=== PATIENT | male | born 1940 | race Caucasian/White ===

== ENCOUNTER 2017-02-26 12:02 | Inpatient (IN) | payer OTHER ==
[2017-02-26] MEDS ORDERED: MAGNESIUM HYDROX 2400MG/30ML ORAL SUSPENSION 30 ML CUP PO PRN (16:25)
[2017-02-26] MEDS ORDERED: hydrOXYzine PAMOATE 50 MG CAPSULE (FP) PO PRN (16:25)
[2017-02-26] MEDS ORDERED: P-EPHED 60MG/TRIPROLIDI 2.5MG TABLET PO PRN (16:25)
[2017-02-26] MEDS ORDERED: IBUPROFEN 400 MG TABLET (FP) PO PRN (16:25)
[2017-02-26] MEDS ORDERED: MAG HYDROX/AL HYDROX/SIMETH 30 ML UNIT-DOSE CUP PO PRN (16:25)
[2017-02-26] MEDS ORDERED: chlordiazePOXIDE HCL 25 MG CAPSULE PO PRN (16:25)
[2017-02-26] MEDS ORDERED: MENTHOL/PHENOL 1 EACH UD MM PRN (16:25)
[2017-02-26] MEDS ORDERED: LOPERAMIDE HCL 2 MG CAPSULE PO PRN (16:25)
[2017-02-26] MEDS ORDERED: MAGNESIUM CITRATE 300 ML BOTTLE PO PRN (16:25)
[2017-02-26] MEDS ORDERED: guaiFENesin/D-METHORPHAN HB 10 ML UNIT-DOSE CUPS PO PRN (16:25)
--- NOTE | 2017-02-26 16:41 | HP ---
CIWA Score - CIWA Score Nausea/Vomitin-No Nausea/No Vomiting Muscle Tremors: 4-Moderate,w/Arms Extend Anxiety: 4-Mod. Anxious/Guarded Agitation: 4-Moderately Restless Paroxysmal Sweats: 3 Orientation: 0-Oriented Tacttile Disturbances: 0-None Auditory Disturbances: 0-None Visual Disturbances: 0-None Headache: 1-Very Mild CIWA-Ar Total Score: 16 Admission ROS BHS - HPI Chief Complaint: I need to stop drinking. Allergies/Adverse Reactions: Allergies Allergy/AdvReac Type Severity Reaction Status Date / Time Penicillins Allergy Intermediate Nausea Verified 02/26/17 16:23 History of Present Illness: pt is a 76yr old male with a history of alcohol dependence seeking detox for treatment. pt has a hx of multiple myloma. pt born with one kidney (renal agenesis) psoriasis Exam Limitations: No Limitations - Ebola screening Have you traveled outside of the country in the last 21 days: No Have you had contact with anyone from an Ebola affected area: No Have you been sick,other than usual withdrawal symptoms: No Do you have a fever: No - Review of Systems Constitutional: Diaphoresis, Night Sweats, Changes in sleep (H/O multiple myoloma H/O renal agenisus) EENT: reports: No Symptoms Reported Respiratory: reports: No Symptoms reported Cardiac: reports: No Symptoms Reported GI: reports: Diarrhea, Poor Appetite, Poor Fluid Intake : reports: No Symptoms Reported Musculoskeletal: reports: Back Pain Integumentary: reports: Flushing, Sweating, Other (psoriosis on skin) Neuro: reports: Tingling, Tremors Endocrine: reports: Excessive Sweating, Flushing Hematology: reports: No Symptoms Reported Psychiatric: reports: Judgement Intact, Mood/Affect Appropiate, Orientated x3, Agitated, Anxious Other Systems: Reviewed and Negative Patient History - Patient Medical History Hx Anemia: No Hx Asthma: No Hx Chronic Obstructive Pulmonary Disease (COPD): No Hx Cancer: Yes (multiple myloma) Hx Cardiac Disorders: No Hx Congestive Heart Failure: No Hx Hypertension: No Hx Hypercholesterolemia: No Hx Pacemaker: No HX Cerebrovascular Accident: No Hx Seizures: No Hx Dementia: No Hx Diabetes: No Hx Gastrointestinal Disorders: No Hx Liver Disease: No Hx Genitourinary Disorders: No Hx Sexually Transmitted Disorders: No Hx Renal Disease (ESRD): No Hx Thyroid Disease: No Hx Human Immunodeficiency Virus (HIV): No (negative) Hx Hepatitis C: No (negtive) Hx Depression: Yes Hx Suicide Attempt: No Hx Bipolar Disorder: No Hx Schizophrenia: No Other Medical History: anxiety - Patient Surgical History Past Surgical History: No - PPD History Previous Implant?: Yes Documented Results: Negative w/o proof PPD to be Administered?: Yes - Reproductive History Patient is a Female of Child Bearing Age (11 -55 yrs old): No - Smoking Cessation Smoking history: Former smoker Have you smoked in the past 12 months: No Hx Chewing Tobacco Use: No Initiated information on smoking cessation: No - Substance & Tx. History Hx Alcohol Use: Yes Hx Substance Use: No Substance Use Type: Alcohol Hx Substance Use Treatment: Yes - Substances Abused Alcohol Route: Oral Frequency: Daily Amount used: 1 pint vodka Age of first use: 30 Date of Last Use: 02/25/17 Family Disease History - Family Disease History Family History: Denies Admission Physical Exam [facility] - Vital Signs Vital Signs: Vital Signs - 24 hr 02/26/17 13:11 Temperature 97 F L Pulse Rate 100 H Respiratory 20 Rate Blood Pressure 141/74 - Physical General Appearance: Yes: Appropriately Dressed, Thin, Tremorous, Irritable, Sweating, Anxious HEENTM: Yes: Normal Voice Respiratory: Yes: Lungs Clear, Normal Breath Sounds, No Respiratory Distress Neck: Yes: No masses,lesions,Nodules Breast: Yes: Within Normal Limits Cardiology: Yes: Regular Rhythm, Regular Rate, S1, S2 Abdominal: Yes: Normal Bowel Sounds, Non Tender, Soft Genitourinary: Yes: Within Normal Limits Back: Yes: Normal Inspection Musculoskeletal: Yes: full range of Motion Extremities: Yes: Normal Capillary Refill, Normal Inspection, Tremors Neurological: Yes: Fully Oriented, Alert, Normal Response Integumentary: Yes: Normal Color, Other (psorisis back area) Lymphatic: Yes: Within Normal Limits - Diagnostic (1) Alcohol dependence with uncomplicated withdrawal Current Visit: Yes Status: Chronic (2) H/O multiple myeloma Current Visit: No Status: Chronic Comment: pt gets weekly chemo injections every saturday. pt received his injection today. (3) Renal agenesis, unilateral Current Visit: No Status: Chronic Cleared for Admission [facility] - Detox or Rehab [facility] Level of Care: Medically Managed Detox Regimen/Protocol: Librium BHS Breath Alcohol Content Breath Alcohol Content: 0 Urine Drug Screen - Results Drug Screen Negative: Yes
[2017-02-26] MEDS ORDERED: chlordiazePOXIDE HCL 25 MG CAPSULE PO SCH (17:00)
[2017-02-26] MEDS ORDERED: chlordiazePOXIDE HCL 25 MG CAPSULE PO ONE (17:45)
[2017-02-26] MEDS ORDERED: FENOFIBRIC ACID 135 MG CAP PO SCH (18:00)
[2017-02-26] MEDS: THIAMINE HCL 100 MG TABLET (FP) PO SCH (22:26)
[2017-02-26] MEDS: chlordiazePOXIDE HCL 25 MG CAPSULE PO SCH (22:26)
[2017-02-26] MEDS: ATORVASTATIN CA 10 MG TABLET (FP) PO SCH (22:26)
[2017-02-26] MEDS: CALCITRIOL 0.25 MCG CAPSULE (FP) PO SCH (22:26)
[2017-02-27] MEDS: chlordiazePOXIDE HCL 25 MG CAPSULE PO SCH ×4 (06:08→23:01)
[2017-02-27] MEDS: CALCITRIOL 0.25 MCG CAPSULE (FP) PO SCH ×3 (06:08→23:02)
--- NOTE | 2017-02-27 07:38 | CONSULT ---
[facility] Psychiatric Consult - Data Date of interview: 02/27/17 Admission source: [facility] Identifying data: This is 76 years old male with no psychiatric hospitalization history intoxicated with: Alcohol Substance Abuse History: - Smoking Cessation. Smoking history: Former smoker. Have you smoked in the past 12 months: No. Hx Chewing Tobacco Use: No. Initiated information on smoking cessation: No. - Substance & Tx. History. Hx Alcohol Use: Yes. Hx Substance Use: No. Substance Use Type: Alcohol. Hx Substance Use Treatment: Yes. - Substances Abused. Alcohol. Route: Oral. Frequency: Daily. Amount used: 1 pint vodka. Age of first use: 30. Date of Last Use: 02/25/17 Medical History: History of Multiple Myeloma Cancer Psychiatric History: Patient report history of depression and anxiety, reports taking prior to admission: Zoloft 25mg poqd Physical/Sexual Abuse/Trauma History: Denies Additional Comment: Zoloft 25mg poqd Mental Status Exam - Mental Status Exam Alert and Oriented to: Time, Place, Person Cognitive Function: Fair Patient Appearance: Well Groomed Mood: Apprehensive Affect: Mood Congruent Patient Behavior: Cooperative Speech Pattern: Appropriate Voice Loudness: Normal Thought Process: Goal Oriented Thought Disorder: Being Controlled Hallucinations: Denies Suicidal Ideation: Denies Homicidal Ideation: Denies Insight/Judgement: Fair Sleep: Difficulty falling asleep Appetite: Fair Muscle strength/Tone: Normal Gait/Station: Normal Additional Comments: Zoloft 25mg poqd Psychiatric Findings - Problem List ([place] 1, 2,3) (1) Alcohol-induced anxiety disorder Current Visit: Yes Status: Acute (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
[2017-02-27 10:20] LABS: MCH 36.2 pg (25.7-33.7); MCHC 33.6 g/dl (32.0-35.9); MEAN CELL VOLUME 107.5 fl (80-96); MEAN PLT VOLUME 7.9 fl (7.5-11.1); PLATELET COUNT 75 K/MM3 (134-434); RDW 19.2 % (11.9-15.9); WHITE BLOOD COUNT 5.6 K/mm3 (4.0-10.0)
[2017-02-27 10:21] LABS: ALBUMIN 2.9 g/dl (3.4-5.0); ANION GAP 8 (8-16); CALCIUM 8.1 mg/dL (8.5-10.1); CO2 23 mmol/L (21-32); CREATININE 2.7 mg/dL (0.7-1.3); GLUCOSE,RANDOM 86 mg/dL (74-106); SGOT/AST 70 U/L (15-37); SGPT/ALT 73 U/L (12-78)
[2017-02-27 10:23] LABS: ALK PHOS 87 U/L (45-117); BILIRUBIN,TOTAL 0.5 mg/dL (0.2-1.0); TOT PROT 4.9 g/dl (6.4-8.2)
[2017-02-27] MEDS: PRENATAL VITAMINS W/ FOLIC ACID TABLET (FP) PO SCH (10:39)
[2017-02-27] MEDS: SERTRALINE HCL 25 MG TABLET (FP) PO SCH (10:39)
[2017-02-27] MEDS: FINASTERIDE 5 MG TABLET (FP) PO SCH (10:39)
[2017-02-27 10:47] LABS: PH,URINE 5.5 (5.0-8.0); URINE APPEARANCE CLEAR; URINE BILIRUBIN NEGATIVE (NEGATIVE); URINE COLOR LT. YELLOW; URINE GLUCOSE (UA) NEGATIVE (NEGATIVE); URINE KETONE NEGATIVE (NEGATIVE); URINE NITRITE NEGATIVE (NEGATIVE); URINE UROBILINOGEN 0.2 mg/dL (0.2-1.0)
[2017-02-27 10:53] LABS: URINE BLOOD TRACE (NEGATIVE); URINE PROTEIN 1+ (NEGATIVE)
--- NOTE | 2017-02-27 11:57 | PN ---
S CIWA - CIWA Score Nausea/Vomitin-No Nausea/No Vomiting Muscle Tremors: 4-Moderate,w/Arms Extend Anxiety: 3 Agitation: 3 Paroxysmal Sweats: 3 Orientation: 0-Oriented Tacttile Disturbances: 0-None Auditory Disturbances: 0-None Visual Disturbances: 0-None Headache: 0-None Present CIWA-Ar Total Score: 13 S Progress Note (SOAP) Subjective: irritable agitation sweats mild shakes Objective: 02/27/17 11:55 Vital Signs Temperature 97.9 F 02/27/17 10:00 Pulse Rate 80 02/27/17 10:00 Respiratory Rate 18 02/27/17 10:00 Blood Pressure 148/81 02/27/17 10:00 O2 Sat by Pulse Oximetry (%) Laboratory Tests 02/26/17 02/27/17 02/27/17 00:00 07:00 07:00 WBC 5.6 RBC 2.25 L Hgb 8.1 L Hct 24.2 L MCV 107.5 H MCH 36.2 H MCHC 33.6 RDW 19.2 H Plt Count 75 L MPV 7.9 Sodium 139 Potassium 4.6 Chloride 108 H Carbon Dioxide 23 Anion Gap 8 BUN 31 H Creatinine 2.7 H Creat Clearance w eGFR 23.09 Random Glucose 86 Calcium 8.1 L Total Bilirubin 0.5 AST 70 H ALT 73 Alkaline Phosphatase 87 Total Protein 4.9 L Albumin 2.9 L Urine Color Lt. yellow Urine Appearance Clear Urine pH 5.5 Ur Specific [place] 1.025 Urine Protein 1+ H Urine Glucose (UA) Negative Urine Ketones Negative Urine Blood Trace H Urine Nitrite Negative Urine Bilirubin Negative Urine Urobilinogen 0.2 low H:H, repeat labs iron sulfate tid ordered aaox3 ambulating no acute distress bun/crating high; pitcher ordered Assessment: 02/27/17 11:57 withdrawal sx Plan: continue detox increase fluids repeat cbc
[2017-02-27] MEDS: FERROUS SO4 325 MG TABLET (FP) PO SCH ×2 (12:27→17:29)
--- NOTE | 2017-02-27 12:47 | EKG ---
Test Reason : Blood Pressure : / mmHG Vent. Rate : 087 BPM Atrial Rate : 087 BPM P-R Int : 138 ms QRS Dur : 082 ms QT Int : 336 ms P-R-T Axes : 067 059 057 degrees QTc Int : 404 ms NORMAL SINUS RHYTHM NORMAL ECG NO PREVIOUS ECGS AVAILABLE Confirmed by BLANK LIEBERMAN, MARGIE ([id number]) on 02/27/2017 12:46:47 PM Referred By: Confirmed By:MARGIE PARSON MD
[2017-02-27] MEDS: ONDANSETRON *ODT* 4 MG TABLET SL PRN ×2 (15:24→22:45)
[2017-02-27 17:03] LABS: URINE BACTERIA RARE /hpf (NONE SEEN); URINE MUCUS RARE; URINE RBC 1 /hpf (0-3); URINE WBC 21 /hpf (3-5)
[2017-02-27 21:18] LABS: URINE LEUK ESTERASE TRACE (NEGATIVE)
[2017-02-27] MEDS: THIAMINE HCL 100 MG TABLET (FP) PO SCH (23:01)
[2017-02-27] MEDS: ATORVASTATIN CA 10 MG TABLET (FP) PO SCH (23:01)
[2017-02-28] MEDS: CALCITRIOL 0.25 MCG CAPSULE (FP) PO SCH ×3 (05:46→22:26)
[2017-02-28] MEDS: chlordiazePOXIDE HCL 25 MG CAPSULE PO SCH ×3 (05:47→17:17)
[2017-02-28] MEDS: FERROUS SO4 325 MG TABLET (FP) PO SCH ×3 (08:08→17:17)
[2017-02-28] MEDS: PRENATAL VITAMINS W/ FOLIC ACID TABLET (FP) PO SCH (10:47)
[2017-02-28] MEDS: SERTRALINE HCL 25 MG TABLET (FP) PO SCH (10:48)
[2017-02-28] MEDS: FINASTERIDE 5 MG TABLET (FP) PO SCH (10:48)
--- NOTE | 2017-02-28 11:59 | PN ---
[facility] CIWA - CIWA Score Nausea/Vomitin-No Nausea/No Vomiting Muscle Tremors: 3 Anxiety: 2 Agitation: 3 Paroxysmal Sweats: 3 Orientation: 0-Oriented Tacttile Disturbances: 0-None Auditory Disturbances: 0-None Visual Disturbances: 0-None Headache: 0-None Present CIWA-Ar Total Score: 11 [facility] Progress Note (SOAP) Subjective: feeling better some sweats interrupted sleep agitation Objective: 02/28/17 12:01 Vital Signs Temperature 97.7 F 02/28/17 09:24 Pulse Rate 81 02/28/17 09:24 Respiratory Rate 18 02/28/17 09:24 Blood Pressure 121/70 02/28/17 09:24 O2 Sat by Pulse Oximetry (%) Laboratory Tests 02/26/17 02/27/17 02/27/17 00:00 07:00 07:00 WBC 5.6 RBC 2.25 L Hgb 8.1 L Hct 24.2 L MCV 107.5 H MCH 36.2 H MCHC 33.6 RDW 19.2 H Plt Count 75 L MPV 7.9 Sodium 139 Potassium 4.6 Chloride 108 H Carbon Dioxide 23 Anion Gap 8 BUN 31 H Creatinine 2.7 H Creat Clearance w eGFR 23.09 Random Glucose 86 Calcium 8.1 L Total Bilirubin 0.5 AST 70 H ALT 73 Alkaline Phosphatase 87 Total Protein 4.9 L Albumin 2.9 L Urine Color Lt. yellow Urine Appearance Clear Urine pH 5.5 Ur Specific [place] 1.025 Urine Protein 1+ H Urine Glucose (UA) Negative Urine Ketones Negative Urine Blood Trace H Urine Nitrite Negative Urine Bilirubin Negative Urine Urobilinogen 0.2 Ur Leukocyte Esterase Trace H Urine WBC (Auto) 21 Urine RBC (Auto) 1 Ur Epithelial Cells Rare Urine Bacteria Rare Urine Mucus Rare RPR Titer 02/27/17 07:00 WBC RBC Hgb Hct MCV MCH MCHC RDW Plt Count MPV Sodium Potassium Chloride Carbon Dioxide Anion Gap BUN Creatinine Creat Clearance w eGFR Random Glucose Calcium Total Bilirubin AST ALT Alkaline Phosphatase Total Protein Albumin Urine Color Urine Appearance Urine pH Ur Specific [place] Urine Protein Urine Glucose (UA) Urine Ketones Urine Blood Urine Nitrite Urine Bilirubin Urine Urobilinogen Ur Leukocyte Esterase Urine WBC (Auto) Urine RBC (Auto) Ur Epithelial Cells Urine Bacteria Urine Mucus RPR Titer Nonreactive cbc and cmp repeat order aaox3 ambulating no acute distress Assessment: 02/28/17 12:01 withdrawal sx Plan: continue detox increase fluids iron tid
[2017-02-28] MEDS: ATORVASTATIN CA 10 MG TABLET (FP) PO SCH (22:26)
[2017-02-28] MEDS: chlordiazePOXIDE 5 MG CAPSULE PO SCH (22:26)
[2017-02-28] MEDS: THIAMINE HCL 100 MG TABLET (FP) PO SCH (22:26)
[2017-03-01] MEDS: ACETAMINOPHEN 325 MG TABLET (FP) PO PRN ×3 (01:35→23:37)
[2017-03-01] MEDS: chlordiazePOXIDE 5 MG CAPSULE PO SCH ×3 (05:22→17:55)
[2017-03-01] MEDS: CALCITRIOL 0.25 MCG CAPSULE (FP) PO SCH ×3 (05:22→22:02)
[2017-03-01] MEDS: FERROUS SO4 325 MG TABLET (FP) PO SCH ×3 (07:43→18:30)
[2017-03-01 10:00] LABS: MCH 36.1 pg (25.7-33.7); MCHC 33.8 g/dl (32.0-35.9); MEAN CELL VOLUME 106.6 fl (80-96); PLATELET COUNT 77 K/MM3 (134-434); RDW 18.9 % (11.9-15.9); WHITE BLOOD COUNT 4.8 K/mm3 (4.0-10.0)
[2017-03-01 10:24] LABS: ALBUMIN 3.3 g/dl (3.4-5.0); ALK PHOS 122 U/L (45-117); ANION GAP 5 (8-16); BILIRUBIN,TOTAL 0.6 mg/dL (0.2-1.0); CALCIUM 8.6 mg/dL (8.5-10.1); CO2 26 mmol/L (21-32); CREATININE 2.8 mg/dL (0.7-1.3); GLUCOSE,RANDOM 92 mg/dL (74-106); SGOT/AST 48 U/L (15-37); SGPT/ALT 77 U/L (12-78); TOT PROT 5.6 g/dl (6.4-8.2)
--- NOTE | 2017-03-01 10:25 | PN ---
[facility] Progress Note (SOAP) Subjective: Sweating,interrupted sleep,restless. Objective: 03/01/17 10:23 Vital Signs - 8 hr 03/01/17 03/01/17 03/01/17 03:30 06:30 09:53 Temperature 96.6 F L 97.5 F L Pulse Rate 69 80 Respiratory 18 16 18 Rate Blood Pressure 129/80 121/74 Laboratory Tests 02/26/17 02/27/17 02/27/17 00:00 07:00 07:00 WBC 5.6 RBC 2.25 L Hgb 8.1 L Hct 24.2 L MCV 107.5 H MCH 36.2 H MCHC 33.6 RDW 19.2 H Plt Count 75 L MPV 7.9 Neutrophils % Lymphocytes % Sodium 139 Potassium 4.6 Chloride 108 H Carbon Dioxide 23 Anion Gap 8 BUN 31 H Creatinine 2.7 H Creat Clearance w eGFR 23.09 Random Glucose 86 Calcium 8.1 L Total Bilirubin 0.5 AST 70 H ALT 73 Alkaline Phosphatase 87 Total Protein 4.9 L Albumin 2.9 L Urine Color Lt. yellow Urine Appearance Clear Urine pH 5.5 Ur Specific [place] 1.025 Urine Protein 1+ H Urine Glucose (UA) Negative Urine Ketones Negative Urine Blood Trace H Urine Nitrite Negative Urine Bilirubin Negative Urine Urobilinogen 0.2 Ur Leukocyte Esterase Trace H Urine WBC (Auto) 21 Urine RBC (Auto) 1 Ur Epithelial Cells Rare Urine Bacteria Rare Urine Mucus Rare RPR Titer 02/27/17 03/01/17 03/01/17 07:00 07:00 07:00 WBC 4.8 RBC 2.42 L Hgb 8.7 L Hct 25.8 L MCV 106.6 H MCH 36.1 H MCHC 33.8 RDW 18.9 H Plt Count 77 L MPV 8.0 Neutrophils % No Result Required. Lymphocytes % No Result Required. Sodium 135 L Potassium 5.1 Chloride 104 Carbon Dioxide Anion Gap BUN Creatinine Creat Clearance w eGFR Random Glucose Calcium Total Bilirubin AST ALT Alkaline Phosphatase Total Protein Albumin Urine Color Urine Appearance Urine pH Ur Specific [place] Urine Protein Urine Glucose (UA) Urine Ketones Urine Blood Urine Nitrite Urine Bilirubin Urine Urobilinogen Ur Leukocyte Esterase Urine WBC (Auto) Urine RBC (Auto) Ur Epithelial Cells Urine Bacteria Urine Mucus RPR Titer Nonreactive labs noted, increase PO fluid BUN/Creatinine pending Assessment: 03/01/17 10:24 Withdrawal sx. [facility] Plan: Continue detox
[2017-03-01] MEDS: SERTRALINE HCL 25 MG TABLET (FP) PO SCH (10:34)
[2017-03-01] MEDS: FINASTERIDE 5 MG TABLET (FP) PO SCH (10:34)
[2017-03-01] MEDS: PRENATAL VITAMINS W/ FOLIC ACID TABLET (FP) PO SCH (10:34)
[2017-03-01 11:14] LABS: PLATELET ESTIMATE DECREASED; TOTAL CELLS COUNTED 100
[2017-03-01] MEDS: chlordiazePOXIDE HCL 10 MG CAPSULE PO SCH (22:01)
[2017-03-01] MEDS: THIAMINE HCL 100 MG TABLET (FP) PO SCH (22:01)
[2017-03-01] MEDS: ATORVASTATIN CA 10 MG TABLET (FP) PO SCH (22:01)
[2017-03-02] MEDS: chlordiazePOXIDE HCL 10 MG CAPSULE PO SCH (05:43)
[2017-03-02] MEDS: CALCITRIOL 0.25 MCG CAPSULE (FP) PO SCH (06:08)
[2017-03-02] MEDS: FERROUS SO4 325 MG TABLET (FP) PO SCH (08:07)
[2017-03-02] MEDS: SERTRALINE HCL 25 MG TABLET (FP) PO SCH (09:23)
[2017-03-02] MEDS: FINASTERIDE 5 MG TABLET (FP) PO SCH (09:23)
[2017-03-02] MEDS: PRENATAL VITAMINS W/ FOLIC ACID TABLET (FP) PO SCH (09:23)
[2017-03-02 10:12] VITALS: BP 137/86; PULSE 90; TEMP 97.5
--- NOTE | 2017-03-02 10:53 | DS ---
[facility] Detox Discharge Summary Admission Date: 02/26/17 Discharge Date: 03/02/17 - History Present History: Alcohol Dependence Pertinent Past History: Multiple Myeloma Renal agenesis,unilateral - Physical Exam Results Vital Signs: Vital Signs Temperature 97.5 F L 03/02/17 10:00 Pulse Rate 90 03/02/17 10:00 Respiratory Rate 18 03/02/17 10:00 Blood Pressure 137/86 03/02/17 10:00 O2 Sat by Pulse Oximetry (%) Pertinent Admission Physical Exam Findings: Withdrawal sx. Laboratory Tests 02/26/17 02/27/17 02/27/17 00:00 07:00 07:00 WBC 5.6 RBC 2.25 L Hgb 8.1 L Hct 24.2 L MCV 107.5 H MCH 36.2 H MCHC 33.6 RDW 19.2 H Plt Count 75 L MPV 7.9 Total Counted Neutrophils % Neutrophils % (Manual) Lymphocytes % Lymphocytes % (Manual) Monocytes % (Manual) Eosinophils % (Manual) Platelet Estimate Sodium 139 Potassium 4.6 Chloride 108 H Carbon Dioxide 23 Anion Gap 8 BUN 31 H Creatinine 2.7 H Creat Clearance w eGFR 23.09 Random Glucose 86 Calcium 8.1 L Total Bilirubin 0.5 AST 70 H ALT 73 Alkaline Phosphatase 87 Total Protein 4.9 L Albumin 2.9 L Urine Color Lt. yellow Urine Appearance Clear Urine pH 5.5 Ur Specific [place] 1.025 Urine Protein 1+ H Urine Glucose (UA) Negative Urine Ketones Negative Urine Blood Trace H Urine Nitrite Negative Urine Bilirubin Negative Urine Urobilinogen 0.2 Ur Leukocyte Esterase Trace H Urine WBC (Auto) 21 Urine RBC (Auto) 1 Ur Epithelial Cells Rare Urine Bacteria Rare Urine Mucus Rare RPR Titer 02/27/17 03/01/17 03/01/17 07:00 07:00 07:00 WBC 4.8 RBC 2.42 L Hgb 8.7 L Hct 25.8 L MCV 106.6 H MCH 36.1 H MCHC 33.8 RDW 18.9 H Plt Count 77 L MPV 8.0 Total Counted 100 Neutrophils % No Result Required. Neutrophils % (Manual) 80.0 Lymphocytes % No Result Required. Lymphocytes % (Manual) 10.0 Monocytes % (Manual) 8 Eosinophils % (Manual) 2.0 Platelet Estimate Decreased Sodium 135 L Potassium 5.1 Chloride 104 Carbon Dioxide 26 Anion Gap 5 L BUN 26 H Creatinine 2.8 H Creat Clearance w eGFR 22.14 Random Glucose 92 Calcium 8.6 Total Bilirubin 0.6 AST 48 H D ALT 77 Alkaline Phosphatase 122 H D Total Protein 5.6 L Albumin 3.3 L Urine Color Urine Appearance Urine pH Ur Specific [place] Urine Protein Urine Glucose (UA) Urine Ketones Urine Blood Urine Nitrite Urine Bilirubin Urine Urobilinogen Ur Leukocyte Esterase Urine WBC (Auto) Urine RBC (Auto) Ur Epithelial Cells Urine Bacteria Urine Mucus RPR Titer Nonreactive labs noted, consistent with hx. of multiple myeloma. Pt. is currently under the care of hem/onc Dr. Kelley - [facility] Course: Detox Protocol Followed, Detoxed Safely, Responded well, Discharged Condition Good, Rehab Referral Accepted Patient has Accepted a Rehab Referral to: AA meetings - Medication Discharge Medications: Ambulatory Orders Atorvastatin Ca [Lipitor] 10 mg PO HS 02/26/17 Bortezomib [Velcade] 3.5 mg IVPUSH WEEKLY 02/26/17 Calcitriol [Rocaltrol -] 0.25 mcg PO TID 02/26/17 Clonazepam [Klonopin] 1 mg PO BID 02/26/17 Dexamethasone [Decadron -] 20 mg PO WEEKLY 02/26/17 Fenofibrate 150 mg PO DAILY 02/26/17 Finasteride [Proscar -] 5 mg PO DAILY 02/26/17 Ondansetron [Zofran -] 4 mg PO Q8H 02/26/17 Sertraline HCl [Zoloft -] 25 mg PO DAILY #30 tablet 02/27/17 - Diagnosis (1) Alcohol dependence with uncomplicated withdrawal Current Visit: Yes Status: Acute (2) H/O multiple myeloma Current Visit: Yes Status: Chronic (3) Renal agenesis, unilateral Current Visit: No Status: Chronic - AMA Did Patient Leave Against Medical Advice: No
== END 2017-03-02 09:25 | disposition home or self-care (01) | DRG 897 ==
LOC: YASAS 12:02 → Y6N 17:06
PROVIDERS: ADMIT Internal Medicine; ATTEND Internal Medicine
PROC: HZ2ZZZZ Detoxification Services for Substance Abuse Treatment (ICD-10-PCS; principal; 2017-02-26)
DX: F10.230 Alcohol dependence with withdrawal, uncomplicated (principal); Q60.0 Renal agenesis, unilateral; F10.980 Alcohol use, unspecified with alcohol-induced anxiety disorder; Z85.79 Personal history of other malignant neoplasms of lymphoid, hematopoietic and related tissues
CPT/HCPCS: 36415; 80053; 81003; 81015; 85025; 85027; 86593; 93005; 93010